=== PATIENT | female | born 1960 | race Caucasian/White ===

== ENCOUNTER 2021-05-21 09:12 | Inpatient (IN) | payer OTHER, SELFPAY ==
[~2021-05-21] VITALS: Ht 160 cm; Wt 76.7 kg
[2021-05-21 09:15] VITALS: BP_SYST 131
[2021-05-21] MEDS ORDERED: NACL 0.9% 1,000 ML IV ONE ×3 (09:45→12:00)
[2021-05-21] MEDS ORDERED: ONDANSETRON HCL 4 MG/2 ML VIAL IVP ONE (09:45)
[2021-05-21 09:53] LABS: BASOPHILS # (AUTO) 0.1 K/uL (0.0-0.2); BASOPHILS % (AUTO) 0.2 % (0.0-2.0); HEMATOCRIT 37.5 % (36-48); HEMOGLOBIN 12.5 g/dL (12.0-16.0); LYMPHOCYTES # (AUTO) 0.6 K/uL (1.0-5.5); LYMPHOCYTES % (AUTO) 1.6 % (20.5-51.5); MEAN CORPUSCULAR HEMOGLOBIN 30 pg (27-31); MEAN CORPUSCULAR HGB CONC 33 % (32-36); MEAN CORPUSCULAR VOLUME 89 fL (79.0-98.0); MONOCYTES # (AUTO) 1.5 K/uL (0.0-1.0); MONOCYTES % (AUTO) 3.8 % (1.7-9.3); NEUTROPHILS # (AUTO) 36.9 K/uL (1.8-7.7); PLATELET COUNT (AUTO) 283 K/uL (130-430); RED BLOOD CELL COUNT(AUTO) 4.21 MIL/uL (4.2-6.2); RED CELL DISTRIBUTION WIDTH 15.4 % (9.0-15.0)
[2021-05-21 10:22] LABS: ANION GAP 13 (5-15); CHLORIDE 97 mmol/L (98-107); CREATININE 3.06 mg/dL (0.55-1.30); GLUCOSE 72 mg/dL (70-99); SODIUM SERUM 131 mmol/L (136-145); UREA NITROGEN, BLOOD 65 mg/dL (8-21)
[2021-05-21 10:29] LABS: ALANINE AMINOTRANSFERASE 16 U/L (12-78); ALBUMIN 2.8 g/dL (3.4-4.8); ASPARTATE AMINOTRANSFERASE 65 U/L (10-37); LIPASE 225 U/L (73-393); TOTAL BILIRUBIN 0.5 mg/dL (0.0-1.0)
[2021-05-21 10:31] LABS: GFR AFRICAN AMERICAN 20 mL/min (>90); POTASSIUM 5.8 mmol/L (3.5-5.1)
[2021-05-21 10:33] LABS: CALCIUM 17.5 mg/dL (8.4-11.0)
[2021-05-21 10:34] LABS: WHITE BLOOD COUNT (AUTO) 39.1 K/uL (4.8-10.8)
[2021-05-21] MEDS ORDERED: ZINC220T4 PO (11:23)
[2021-05-21] MEDS ORDERED: ACET-73 PO (11:23)
[2021-05-21] MEDS ORDERED: ASCO500T20 PO (11:23)
[2021-05-21] MEDS ORDERED: VITD2000 PO (11:23)
[2021-05-21] MEDS ORDERED: OSCD500 PO (11:23)
[2021-05-21] MEDS ORDERED: RIVA20TA PO (11:23)
[2021-05-21] MEDS ORDERED: CRAN450T9 PO (11:23)
[2021-05-21] MEDS ORDERED: PERC10 PO (11:23)
[2021-05-21] MEDS ORDERED: NA P133E41 RC (11:23)
[2021-05-21] MEDS ORDERED: NITR-85 PO (11:23)
[2021-05-21] MEDS ORDERED: NOR10 PO (11:23)
[2021-05-21] MEDS ORDERED: BENA40TA8 PO (11:23)
[2021-05-21] MEDS ORDERED: METF-518 PO (11:23)
[2021-05-21] MEDS ORDERED: ESCI10TA PO (11:23)
[2021-05-21] MEDS ORDERED: CYCL10TA24 PO (11:23)
[2021-05-21] MEDS ORDERED: DOCU-144 PO (11:23)
[2021-05-21 11:29] LABS: BILIRUBIN,URINE NEGATIVE (NEGATIVE); BLOOD, URINE NEGATIVE (NEGATIVE); GLUCOSE,URINE NEGATIVE (NEGATIVE); KETONES,URINE NEGATIVE (NEGATIVE); LEUKOCYTE ESTERASE ,URINE NEGATIVE (NEGATIVE); NITRITE, URINE NEGATIVE (NEGATIVE); PH,URINE 5.5 (5.0-8.0); PROTEIN URINE NEGATIVE (NEGATIVE); UROBILINOGEN,URINE 0.2 (0.2-1.0)
[2021-05-21] MEDS ORDERED: DEXTROSE 50% JECT 50 ML DISP.SYRIN IVP ONE (12:00)
[2021-05-21] MEDS ORDERED: PIPERACILLIN/TAZO 3.375 GM in NS 50 ML IV ONE (12:00)
[2021-05-21] MEDS ORDERED: SODIUM POLYSTYRENE SULFONATE 15 GM/60 ML UDBTL PO ONE (12:00)
[2021-05-21] MEDS ORDERED: PIPERACILLIN/TAZOBACTAM 3.375 GM/VIAL (ZOSYN) IV ONE (12:02)
[2021-05-21] MEDS ORDERED: LINEZOLID 300 ML IV SCH (12:15)
[2021-05-21 12:16] LABS: CLARITY/URINE SLIGHTLY HAZY (CLEAR); COLOR,URINE YELLOW (YELLOW)
[2021-05-21 13:37] LABS: NEUTROPHILS % (AUTO) 94.4 % (40.0-70.0)
[2021-05-21 13:43] LABS: THYROID STIMULATING HORMONE 1.54 uIu/mL (0.36-3.74)
[2021-05-21] MEDS ORDERED: PIPERACILLIN/TAZO 3.375/DEX-IS 50 ML IV SCH (14:00)
[2021-05-21 18:35] VITALS: BP_SYST 162
[2021-05-21] MEDS: 0.45% NACL 1,000 ML IV SCH ×2 (18:52→19:10)
[2021-05-21] MEDS: PIPERACILLIN/TAZO 2.25G/DEX-IS 50 ML IV SCH (19:18)
[2021-05-21] MEDS ORDERED: CALCIUM CARBONATE/VITAMIN D3 1 TAB TABLET PO SCH (19:30)
[2021-05-21] MEDS ORDERED: SODIUM PHOSPHATE,MONO-DIBASIC 133 ML ENEMA RC PRN (19:30)
[2021-05-21 21:00] VITALS: BP_SYST 147
[2021-05-21] MEDS: CYCLOBENZAPRINE HCL 10 MG TABLET (FLEXERIL) PO SCH (23:20)
[2021-05-21] MEDS: DOCUSATE SODIUM 100 MG CAPSULE PO SCH (23:20)
[2021-05-22 00:30] VITALS: BP_SYST 159
[2021-05-22] MEDS: PIPERACILLIN/TAZO 2.25G/DEX-IS 50 ML IV SCH ×2 (00:31→06:20)
[2021-05-22] MEDS: 0.45% NACL 1,000 ML IV SCH ×4 (00:32→21:26)
[2021-05-22 07:28] LABS: BASOPHILS % (AUTO) 0.1 % (0.0-2.0); HEMOGLOBIN 9.7 g/dL (12.0-16.0); LYMPHOCYTES # (AUTO) 0.5 K/uL (1.0-5.5); LYMPHOCYTES % (AUTO) 1.3 % (20.5-51.5); MEAN CORPUSCULAR HEMOGLOBIN 29 pg (27-31); MEAN CORPUSCULAR HGB CONC 32 % (32-36); MEAN CORPUSCULAR VOLUME 89 fL (79.0-98.0); MONOCYTES # (AUTO) 1.5 K/uL (0.0-1.0); MONOCYTES % (AUTO) 3.5 % (1.7-9.3); NEUTROPHILS # (AUTO) 40.2 K/uL (1.8-7.7); NEUTROPHILS % (AUTO) 95.1 % (40.0-70.0); PLATELET COUNT (AUTO) 223 K/uL (130-430); RED BLOOD CELL COUNT(AUTO) 3.37 MIL/uL (4.2-6.2)
[2021-05-22 08:03] VITALS: BP_SYST 134
[2021-05-22 08:07] LABS: CREATININE 1.82 mg/dL (0.55-1.30)
[2021-05-22 08:25] LABS: WHITE BLOOD COUNT (AUTO) 42.3 K/uL (4.8-10.8)
[2021-05-22] MEDS ORDERED: lisinopriL 20 MG TABLET PO SCH (09:00)
[2021-05-22] MEDS ORDERED: CHOLECALCIFEROL (VITAMIN D3) 2,000 UNIT TABLET PO SCH (09:00)
[2021-05-22] MEDS ORDERED: BENAZEPRIL HCL 20 MG TABLET (LOTENSIN) PO SCH (09:00)
[2021-05-22] MEDS ORDERED: ESCITALOPRAM OXALATE 10 MG TABLET PO SCH (09:00)
[2021-05-22] MEDS ORDERED: amLODIPine BESYLATE 10 MG TABLET PO SCH (09:00)
[2021-05-22 09:25] LABS: CALCIUM 14.8 mg/dL (8.4-11.0)
[2021-05-22] MEDS ORDERED: DEXAMETHASONE SOD PHOSPHATE 4 MG/ML VIAL IVP ONE (09:45)
[2021-05-22] MEDS: DOCUSATE SODIUM 100 MG CAPSULE PO SCH ×2 (10:39→21:21)
[2021-05-22] MEDS: CITALOPRAM HYDROBROMIDE 20 MG TABLET PO SCH (10:39)
[2021-05-22] MEDS: CYCLOBENZAPRINE HCL 10 MG TABLET (FLEXERIL) PO SCH ×3 (10:40→21:20)
[2021-05-22] MEDS: ASCORBIC ACID 500 MG TABLET PO SCH (10:43)
[2021-05-22 10:49] VITALS: BP_SYST 153
[2021-05-22] MEDS ORDERED: COMMUNICATION ORDER XX ONE (11:15)
[2021-05-22] MEDS ORDERED: METOPROLOL TARTRATE 25 MG TABLET PO ONE (11:15)
[2021-05-22] MEDS: CALCITONIN SALMON,SYNTHETIC 200 UNITS/ML VIAL SUBCUT SCH ×2 (11:41→21:20)
[2021-05-22] MEDS: LORazepam 2 MG/ML VIAL IVP PRN (11:43)
[2021-05-22] MEDS: OXYCODONE/ACETAMINOPHEN *10*mg/325 mg TABLET PO PRN (11:49)
[2021-05-22] MEDS: MEROPENEM 1 GM in NS 100 ML IV SCH (16:02)
[2021-05-22 16:21] VITALS: BP_SYST 139
[2021-05-22] MEDS ORDERED: ZOLEDRONIC ACID 4 MG in NS 100 ML IV ONE (18:00)
[2021-05-22 21:18] VITALS: BP_SYST 125
[2021-05-22] MEDS: DEXAMETHASONE SOD PHOSPHATE 4 MG/ML VIAL IVP SCH (21:21)
[2021-05-22] MEDS: METOPROLOL TARTRATE 25 MG TABLET PO SCH (21:21)
[2021-05-23] VITALS: BP_SYST 142
[2021-05-23] MEDS: LORazepam 2 MG/ML VIAL IVP PRN ×2 (00:51→21:45)
[2021-05-23] MEDS: MEROPENEM 1 GM in NS 100 ML IV SCH ×2 (02:40→14:13)
[2021-05-23] MEDS: 0.45% NACL 1,000 ML IV SCH ×3 (04:34→21:07)
[2021-05-23 07:47] LABS: ALBUMIN 2.3 g/dL (3.4-4.8); CALCIUM 11.6 mg/dL (8.4-11.0); CREATININE 1.23 mg/dL (0.55-1.30); PHOSPHORUS 1.7 mg/dL (2.7-4.5); POTASSIUM 3.6 mmol/L (3.5-5.1); TOTAL BILIRUBIN 0.4 mg/dL (0.0-1.0)
[2021-05-23 08:23] LABS: HEMATOCRIT 26.3 % (36-48); HEMOGLOBIN 8.5 g/dL (12.0-16.0); MEAN CORPUSCULAR HEMOGLOBIN 29 pg (27-31); MEAN CORPUSCULAR HGB CONC 32 % (32-36); MEAN CORPUSCULAR VOLUME 89 fL (79.0-98.0); PLATELET COUNT (AUTO) 174 K/uL (130-430); RED BLOOD CELL COUNT(AUTO) 2.94 MIL/uL (4.2-6.2)
[2021-05-23 08:24] VITALS: BP_SYST 132
[2021-05-23] MEDS: CALCITONIN SALMON,SYNTHETIC 200 UNITS/ML VIAL SUBCUT SCH ×2 (09:00→21:20)
[2021-05-23 09:41] LABS: INR 1.3 (0.8-1.2); PROTHROMBIN TIME 13.7 SECS (9.5-12.5)
[2021-05-23 09:58] LABS: WHITE BLOOD COUNT (AUTO) 36.6 K/uL (4.8-10.8)
[2021-05-23] MEDS: CITALOPRAM HYDROBROMIDE 20 MG TABLET PO SCH (10:15)
[2021-05-23] MEDS: ASCORBIC ACID 500 MG TABLET PO SCH (10:15)
[2021-05-23] MEDS: amLODIPine BESYLATE 5 MG TABLET PO SCH ×2 (10:16→10:31)
[2021-05-23] MEDS: DEXAMETHASONE SOD PHOSPHATE 4 MG/ML VIAL IVP SCH ×2 (10:27→21:13)
[2021-05-23] MEDS: DOCUSATE SODIUM 100 MG CAPSULE PO SCH ×2 (10:29→21:13)
[2021-05-23] MEDS: METOPROLOL TARTRATE 25 MG TABLET PO SCH ×2 (10:42→10:46)
[2021-05-23] MEDS: CYCLOBENZAPRINE HCL 10 MG TABLET (FLEXERIL) PO SCH ×3 (10:45→21:13)
[2021-05-23 12:49] VITALS: BP_SYST 136
[2021-05-23] MEDS ORDERED: K PHOS 30 MM in NS 250 ML IV ONE (13:30)
[2021-05-23 13:38] LABS: BAND % (MANUAL) 3 % (0-6); BASOPHILS % (MANUAL) 0 % (0-2); EOSINOPHILS % (MANUAL) 0 % (0-7); LYMPHOCYTES % (MANUAL) 2 % (20-46); METAMYELOCYTES % 1 % (0-0); MONOCYTES % (MANUAL) 4 % (0-11)
[2021-05-23 16:14] VITALS: BP_SYST 134
[2021-05-23 21:14] VITALS: BP_SYST 139
[2021-05-23] MEDS: OXYCODONE/ACETAMINOPHEN *10*mg/325 mg TABLET PO PRN ×3 (21:14→21:36)
[2021-05-24] VITALS (7 sets, daily range): BP systolic 132–156
[2021-05-24] MEDS: LORazepam 2 MG/ML VIAL IVP PRN ×2 (02:15→09:07)
[2021-05-24] MEDS: MEROPENEM 1 GM in NS 100 ML IV SCH ×3 (02:18→22:06)
[2021-05-24] MEDS: 0.45% NACL 1,000 ML IV SCH (05:42)
[2021-05-24 06:56] LABS: BASOPHILS % (AUTO) 0.1 % (0.0-2.0); HEMOGLOBIN 8.1 g/dL (12.0-16.0); LYMPHOCYTES # (AUTO) 0.7 K/uL (1.0-5.5); MEAN CORPUSCULAR HEMOGLOBIN 29 pg (27-31); MEAN CORPUSCULAR HGB CONC 32 % (32-36); MEAN CORPUSCULAR VOLUME 89 fL (79.0-98.0); MONOCYTES # (AUTO) 1.5 K/uL (0.0-1.0); MONOCYTES % (AUTO) 4.2 % (1.7-9.3); NEUTROPHILS % (AUTO) 93.7 % (40.0-70.0); PLATELET COUNT (AUTO) 167 K/uL (130-430); RED BLOOD CELL COUNT(AUTO) 2.81 MIL/uL (4.2-6.2); RED CELL DISTRIBUTION WIDTH 14.7 % (9.0-15.0)
[2021-05-24 08:20] LABS: CALCIUM 9.9 mg/dL (8.4-11.0); CREATININE 0.66 mg/dL (0.55-1.30); PHOSPHORUS 1.9 mg/dL (2.7-4.5); POTASSIUM 3.7 mmol/L (3.5-5.1)
[2021-05-24 09:05] LABS: WHITE BLOOD COUNT (AUTO) 36.3 K/uL (4.8-10.8)
[2021-05-24] MEDS: CITALOPRAM HYDROBROMIDE 20 MG TABLET PO SCH (09:12)
[2021-05-24] MEDS: CYCLOBENZAPRINE HCL 10 MG TABLET (FLEXERIL) PO SCH ×3 (09:12→22:00)
[2021-05-24] MEDS: DOCUSATE SODIUM 100 MG CAPSULE PO SCH ×2 (09:14→22:04)
[2021-05-24] MEDS: amLODIPine BESYLATE 5 MG TABLET PO SCH (09:14)
[2021-05-24] MEDS: ASCORBIC ACID 500 MG TABLET PO SCH (09:14)
[2021-05-24] MEDS: DEXAMETHASONE SOD PHOSPHATE 4 MG/ML VIAL IVP SCH (09:21)
[2021-05-24] MEDS: METOPROLOL TARTRATE 25 MG TABLET PO SCH ×2 (09:22→22:02)
[2021-05-24] MEDS ORDERED: K PHOS 30 MM in NS 250 ML IV ONE (12:45)
[2021-05-24] MEDS: CALCITONIN SALMON,SYNTHETIC 200 UNITS/ML VIAL SUBCUT SCH (21:00)
[2021-05-25 00:39] VITALS: BP_SYST 147
[2021-05-25] MEDS: INSULIN REGULAR, HUMAN 100 UNITS/ML, 10 ML VIAL (humuLIN R) SUBCUT PRN (01:05)
[2021-05-25] MEDS: 0.45% NACL 1,000 ML IV SCH ×4 (01:37→23:07)
[2021-05-25 04:00] VITALS: BP_SYST 146
[2021-05-25] MEDS: MEROPENEM 1 GM in NS 100 ML IV SCH ×3 (06:57→23:07)
[2021-05-25 07:26] LABS: HEMATOCRIT 25.5 % (36-48); HEMOGLOBIN 8.1 g/dL (12.0-16.0); MEAN CORPUSCULAR HEMOGLOBIN 29 pg (27-31); MEAN CORPUSCULAR HGB CONC 32 % (32-36); MEAN CORPUSCULAR VOLUME 89 fL (79.0-98.0); PLATELET COUNT (AUTO) 164 K/uL (130-430); RED BLOOD CELL COUNT(AUTO) 2.86 MIL/uL (4.2-6.2); RED CELL DISTRIBUTION WIDTH 15.1 % (9.0-15.0)
[2021-05-25 07:52] LABS: WHITE BLOOD COUNT (AUTO) 36.4 K/uL (4.8-10.8)
[2021-05-25 08:23] LABS: ATYPICAL LYMPHOCYTES % 0 % (0-0); BAND % (MANUAL) 9 % (0-6); BASOPHILS % (MANUAL) 0 % (0-2); EOSINOPHILS % (MANUAL) 0 % (0-7); LYMPHOCYTES % (MANUAL) 5 % (20-46); MONOCYTES % (MANUAL) 3 % (0-11)
[2021-05-25] MEDS: DOCUSATE SODIUM 100 MG CAPSULE PO SCH ×3 (09:00→20:59)
[2021-05-25 09:07] VITALS: BP_SYST 144
[2021-05-25] MEDS: CITALOPRAM HYDROBROMIDE 20 MG TABLET PO SCH (09:13)
[2021-05-25] MEDS: CYCLOBENZAPRINE HCL 10 MG TABLET (FLEXERIL) PO SCH ×3 (09:14→20:58)
[2021-05-25] MEDS: METOPROLOL TARTRATE 25 MG TABLET PO SCH ×2 (09:15→20:58)
[2021-05-25] MEDS: ASCORBIC ACID 500 MG TABLET PO SCH (09:15)
[2021-05-25] MEDS ORDERED: amLODIPine BESYLATE 5 MG TABLET PO ONE (09:30)
[2021-05-25 10:02] LABS: CALCIUM 8.9 mg/dL (8.4-11.0); CREATININE 0.58 mg/dL (0.55-1.30); PHOSPHORUS 1.4 mg/dL (2.7-4.5); POTASSIUM 3.3 mmol/L (3.5-5.1)
[2021-05-25] MEDS: CALCITONIN SALMON,SYNTHETIC 200 UNITS/ML VIAL SUBCUT SCH (11:07)
[2021-05-25 13:03] VITALS: BP_SYST 149
[2021-05-25] MEDS ORDERED: K PHOS 30 MM in NS 250 ML IV ONE ×2 (14:15→15:00)
[2021-05-25 18:10] VITALS: BP_SYST 143
[2021-05-25 20:05] VITALS: BP_SYST 147
[2021-05-26 01:18] VITALS: BP_SYST 145
[2021-05-26] MEDS: MEROPENEM 1 GM in NS 100 ML IV SCH ×3 (06:01→21:08)
[2021-05-26 08:25] VITALS: BP_SYST 150
[2021-05-26] MEDS: CYCLOBENZAPRINE HCL 10 MG TABLET (FLEXERIL) PO SCH ×3 (08:27→21:08)
[2021-05-26] MEDS: CITALOPRAM HYDROBROMIDE 20 MG TABLET PO SCH (08:27)
[2021-05-26] MEDS: METOPROLOL TARTRATE 25 MG TABLET PO SCH ×2 (08:28→21:07)
[2021-05-26] MEDS: amLODIPine BESYLATE 5 MG TABLET PO SCH (08:29)
[2021-05-26] MEDS: ASCORBIC ACID 500 MG TABLET PO SCH (08:29)
[2021-05-26] MEDS: DOCUSATE SODIUM 100 MG CAPSULE PO SCH ×2 (08:39→21:00)
[2021-05-26] MEDS: 0.45% NACL 1,000 ML IV SCH (09:30)
[2021-05-26 12:00] VITALS: BP_SYST 140
[2021-05-26 16:09] VITALS: BP_SYST 137
[2021-05-26] MEDS: OXYCODONE/ACETAMINOPHEN *10*mg/325 mg TABLET PO PRN (21:26)
[2021-05-26] MEDS: LORazepam 2 MG/ML VIAL IVP PRN (21:26)
[2021-05-26 23:54] VITALS: BP_SYST 135
[2021-05-27 00:28] VITALS: BP_SYST 124
[2021-05-27] MEDS: LORazepam 2 MG/ML VIAL IVP PRN ×2 (01:35→20:24)
[2021-05-27] MEDS: OXYCODONE/ACETAMINOPHEN *10*mg/325 mg TABLET PO PRN (04:18)
[2021-05-27 04:45] VITALS: BP_SYST 132
[2021-05-27] MEDS: MEROPENEM 1 GM in NS 100 ML IV SCH ×3 (06:00→21:09)
[2021-05-27] MEDS: INSULIN REGULAR, HUMAN 100 UNITS/ML, 10 ML VIAL (humuLIN R) SUBCUT PRN ×2 (06:40→07:25)
[2021-05-27 08:00] VITALS: BP_SYST 143
[2021-05-27 08:10] LABS: ALBUMIN 2.7 g/dL (3.4-4.8); CALCIUM 7.2 mg/dL (8.4-11.0); CREATININE 0.51 mg/dL (0.55-1.30); TOTAL BILIRUBIN 0.5 mg/dL (0.0-1.0)
[2021-05-27 09:03] LABS: BASOPHILS # (AUTO) 0.1 K/uL (0.0-0.2); BASOPHILS % (AUTO) 0.2 % (0.0-2.0); EOSINOPHILS % (AUTO) 0.1 % (0.0-4.0); HEMATOCRIT 26.6 % (36-48); HEMOGLOBIN 8.4 g/dL (12.0-16.0); LYMPHOCYTES # (AUTO) 0.9 K/uL (1.0-5.5); LYMPHOCYTES % (AUTO) 2.5 % (20.5-51.5); MEAN CORPUSCULAR HEMOGLOBIN 28 pg (27-31); MEAN CORPUSCULAR HGB CONC 32 % (32-36); MEAN CORPUSCULAR VOLUME 89 fL (79.0-98.0); MONOCYTES # (AUTO) 1.9 K/uL (0.0-1.0); NEUTROPHILS # (AUTO) 34.5 K/uL (1.8-7.7); PLATELET COUNT (AUTO) 153 K/uL (130-430); RED BLOOD CELL COUNT(AUTO) 2.99 MIL/uL (4.2-6.2); RED CELL DISTRIBUTION WIDTH 15.3 % (9.0-15.0)
[2021-05-27] MEDS: ASCORBIC ACID 500 MG TABLET PO SCH (09:03)
[2021-05-27] MEDS: DOCUSATE SODIUM 100 MG CAPSULE PO SCH ×2 (09:03→20:20)
[2021-05-27] MEDS: METOPROLOL TARTRATE 25 MG TABLET PO SCH ×2 (09:04→20:20)
[2021-05-27] MEDS: CITALOPRAM HYDROBROMIDE 20 MG TABLET PO SCH (09:05)
[2021-05-27] MEDS: CYCLOBENZAPRINE HCL 10 MG TABLET (FLEXERIL) PO SCH ×3 (09:05→20:19)
[2021-05-27] MEDS: amLODIPine BESYLATE 5 MG TABLET PO SCH (09:05)
[2021-05-27 09:29] LABS: NEUTROPHILS % (AUTO) 92.2 % (40.0-70.0)
[2021-05-27 11:34] LABS: POTASSIUM 2.8 mmol/L (3.5-5.1)
[2021-05-27 12:25] VITALS: BP_SYST 148
[2021-05-27] MEDS ORDERED: POTASSIUM CHLORIDE 20 MEQ TAB.PRT.SR PO ONE (12:45)
[2021-05-27] MEDS: 0.45% NACL 1,000 ML IV SCH (13:30)
[2021-05-27] MEDS ORDERED: POTASSIUM CHLORIDE 40 MEQ, LIDOCAINE JECT 2% PF 100 MG 50 MG in NS 250 ML IV ONE (14:15)
[2021-05-27 14:55] LABS: TOTAL IRON BIND. CAPACITY 144 ug/dL (250-450)
[2021-05-27 16:54] VITALS: BP_SYST 136
[2021-05-27 20:00] VITALS: BP_SYST 150
[2021-05-27] MEDS: RIVAROXABAN 10 MG TABLET PO SCH (20:19)
[2021-05-27 23:23] LABS: BILIRUBIN,URINE NEGATIVE (NEGATIVE); BLOOD, URINE 2+ (NEGATIVE); COLOR,URINE YELLOW (YELLOW); GLUCOSE,URINE NEGATIVE (NEGATIVE); KETONES,URINE 2+ (NEGATIVE); LEUKOCYTE ESTERASE ,URINE NEGATIVE (NEGATIVE); NITRITE, URINE NEGATIVE (NEGATIVE); PROTEIN URINE TRACE (NEGATIVE); UROBILINOGEN,URINE 0.2 (0.2-1.0)
[2021-05-27 23:32] LABS: CLARITY/URINE SLIGHTLY CLOUDY (CLEAR)
[2021-05-27 23:38] LABS: WBC,URINE 0-3 /HPF (0-3)
[2021-05-27 23:39] LABS: BACTERIA,URINE FEW /HPF (None Seen)
[2021-05-28] VITALS: BP_SYST 144
[2021-05-28] MEDS: 0.45% NACL 1,000 ML IV SCH ×4 (00:01→20:01)
[2021-05-28] MEDS: MEROPENEM 1 GM in NS 100 ML IV SCH ×3 (05:00→21:38)
[2021-05-28] MEDS: ACETAMINOPHEN 500 MG TABLET PO PRN (05:10)
[2021-05-28 07:59] LABS: ALBUMIN 2.7 g/dL (3.4-4.8); CALCIUM 7.3 mg/dL (8.4-11.0); CREATININE 0.46 mg/dL (0.55-1.30); PHOSPHORUS 1.1 mg/dL (2.7-4.5); POTASSIUM 3.7 mmol/L (3.5-5.1); TOTAL BILIRUBIN 0.6 mg/dL (0.0-1.0)
[2021-05-28 08:00] VITALS: BP_SYST 145
[2021-05-28 08:09] LABS: BASOPHILS # (AUTO) 0.1 K/uL (0.0-0.2); BASOPHILS % (AUTO) 0.2 % (0.0-2.0); HEMOGLOBIN 8.7 g/dL (12.0-16.0); LYMPHOCYTES # (AUTO) 0.8 K/uL (1.0-5.5); LYMPHOCYTES % (AUTO) 2.1 % (20.5-51.5); MEAN CORPUSCULAR HEMOGLOBIN 29 pg (27-31); MEAN CORPUSCULAR HGB CONC 32 % (32-36); MEAN CORPUSCULAR VOLUME 89 fL (79.0-98.0); MONOCYTES # (AUTO) 1.8 K/uL (0.0-1.0); MONOCYTES % (AUTO) 4.8 % (1.7-9.3); NEUTROPHILS # (AUTO) 34.4 K/uL (1.8-7.7); PLATELET COUNT (AUTO) 147 K/uL (130-430); RED BLOOD CELL COUNT(AUTO) 3.03 MIL/uL (4.2-6.2); RED CELL DISTRIBUTION WIDTH 15.6 % (9.0-15.0)
[2021-05-28] MEDS: DOCUSATE SODIUM 100 MG CAPSULE PO SCH ×3 (09:00→21:36)
[2021-05-28] MEDS: METOPROLOL TARTRATE 25 MG TABLET PO SCH (09:10)
[2021-05-28] MEDS: CITALOPRAM HYDROBROMIDE 20 MG TABLET PO SCH (09:10)
[2021-05-28] MEDS: ASCORBIC ACID 500 MG TABLET PO SCH (09:11)
[2021-05-28] MEDS: amLODIPine BESYLATE 5 MG TABLET PO SCH (09:12)
[2021-05-28] MEDS: CYCLOBENZAPRINE HCL 10 MG TABLET (FLEXERIL) PO SCH ×3 (09:12→21:37)
[2021-05-28 10:07] LABS: FOLATE (FOLIC ACID) 4.4 ng/mL (>3.0)
[2021-05-28 10:09] LABS: NEUTROPHILS % (AUTO) 92.9 % (40.0-70.0); WHITE BLOOD COUNT (AUTO) 37.1 K/uL (4.8-10.8)
[2021-05-28 10:11] LABS: WHITE BLOOD COUNT (AUTO) 37.4 K/uL (4.8-10.8)
[2021-05-28 12:20] VITALS: BP_SYST 152
[2021-05-28] MEDS ORDERED: SODIUM BICARBONATE 650 MG TABLET PO ONE (13:15)
[2021-05-28] MEDS ORDERED: K PHOS 30 MM in NS 250 ML IV ONE (14:00)
[2021-05-28 16:34] VITALS: BP_SYST 143
[2021-05-28] MEDS ORDERED: K PHOS 15 MM in NS 250 ML IV ONE (18:15)
[2021-05-28 20:00] VITALS: BP_SYST 150
[2021-05-28] MEDS: SODIUM BICARBONATE 650 MG TABLET PO SCH (21:36)
[2021-05-28] MEDS: METOPROLOL TARTRATE 50 MG TABLET PO SCH (21:37)
[2021-05-28] MEDS: RIVAROXABAN 10 MG TABLET PO SCH (21:37)
[2021-05-28] MEDS: LORazepam 2 MG/ML VIAL IVP PRN (21:59)
[2021-05-29] VITALS: BP_SYST 140
[2021-05-29] MEDS: 0.45% NACL 1,000 ML IV SCH ×3 (01:06→15:30)
[2021-05-29] MEDS: MEROPENEM 1 GM in NS 100 ML IV SCH ×2 (05:50→20:46)
[2021-05-29 07:05] LABS: BASOPHILS # (AUTO) 0.1 K/uL (0.0-0.2); BASOPHILS % (AUTO) 0.2 % (0.0-2.0); EOSINOPHILS % (AUTO) 0.1 % (0.0-4.0); HEMATOCRIT 27.8 % (36-48); LYMPHOCYTES # (AUTO) 0.8 K/uL (1.0-5.5); LYMPHOCYTES % (AUTO) 2.2 % (20.5-51.5); MEAN CORPUSCULAR HEMOGLOBIN 29 pg (27-31); MEAN CORPUSCULAR HGB CONC 32 % (32-36); MEAN CORPUSCULAR VOLUME 89 fL (79.0-98.0); MONOCYTES # (AUTO) 1.8 K/uL (0.0-1.0); MONOCYTES % (AUTO) 4.9 % (1.7-9.3); NEUTROPHILS % (AUTO) 92.6 % (40.0-70.0); PLATELET COUNT (AUTO) 135 K/uL (130-430); RED BLOOD CELL COUNT(AUTO) 3.12 MIL/uL (4.2-6.2); RED CELL DISTRIBUTION WIDTH 15.9 % (9.0-15.0)
[2021-05-29 08:00] VITALS: BP_SYST 137
[2021-05-29 08:28] LABS: WHITE BLOOD COUNT (AUTO) 36.7 K/uL (4.8-10.8)
[2021-05-29 08:34] LABS: CREATININE 0.44 mg/dL (0.55-1.30); PHOSPHORUS 1.7 mg/dL (2.7-4.5); POTASSIUM 3.2 mmol/L (3.5-5.1)
[2021-05-29] MEDS: DOCUSATE SODIUM 100 MG CAPSULE PO SCH ×2 (09:00→20:26)
[2021-05-29] MEDS: SODIUM BICARBONATE 650 MG TABLET PO SCH ×2 (09:30→20:26)
[2021-05-29] MEDS: ASCORBIC ACID 500 MG TABLET PO SCH (09:31)
[2021-05-29] MEDS: CYCLOBENZAPRINE HCL 10 MG TABLET (FLEXERIL) PO SCH ×3 (09:31→20:27)
[2021-05-29] MEDS: METOPROLOL TARTRATE 50 MG TABLET PO SCH ×2 (09:32→20:30)
[2021-05-29] MEDS: amLODIPine BESYLATE 5 MG TABLET PO SCH (09:33)
[2021-05-29] MEDS: CITALOPRAM HYDROBROMIDE 20 MG TABLET PO SCH (09:33)
[2021-05-29 09:50] LABS: CALCIUM 6.5 mg/dL (8.4-11.0)
[2021-05-29 12:18] VITALS: BP_SYST 145
[2021-05-29] MEDS ORDERED: K PHOS 30 MM in NS 250 ML IV ONE ×2 (16:00→16:15)
[2021-05-29 16:14] VITALS: BP_SYST 139
[2021-05-29] MEDS ORDERED: CALCIUM GLUCONATE 2 GM in NS 100 ML IV ONE (16:15)
[2021-05-29] MEDS ORDERED: K PHOS 15 MM in NS 250 ML IV ONE (18:00)
[2021-05-29 20:00] VITALS: BP_SYST 148
[2021-05-29] MEDS: RIVAROXABAN 10 MG TABLET PO SCH (20:28)
[2021-05-30 01:19] VITALS: BP_SYST 171
[2021-05-30] MEDS: 0.45% NACL 1,000 ML IV SCH ×4 (02:01→22:01)
[2021-05-30] MEDS: MEROPENEM 1 GM in NS 100 ML IV SCH ×3 (05:19→22:05)
[2021-05-30 07:58] LABS: BASOPHILS # (AUTO) 0.1 K/uL (0.0-0.2); BASOPHILS % (AUTO) 0.4 % (0.0-2.0); HEMATOCRIT 26.6 % (36-48); HEMOGLOBIN 8.5 g/dL (12.0-16.0); LYMPHOCYTES # (AUTO) 0.8 K/uL (1.0-5.5); LYMPHOCYTES % (AUTO) 2.1 % (20.5-51.5); MEAN CORPUSCULAR HEMOGLOBIN 29 pg (27-31); MEAN CORPUSCULAR HGB CONC 32 % (32-36); MEAN CORPUSCULAR VOLUME 90 fL (79.0-98.0); MONOCYTES # (AUTO) 1.7 K/uL (0.0-1.0); MONOCYTES % (AUTO) 4.7 % (1.7-9.3); NEUTROPHILS # (AUTO) 33.9 K/uL (1.8-7.7); PLATELET COUNT (AUTO) 147 K/uL (130-430); RED BLOOD CELL COUNT(AUTO) 2.95 MIL/uL (4.2-6.2); RED CELL DISTRIBUTION WIDTH 16.1 % (9.0-15.0)
[2021-05-30 08:00] VITALS: BP_SYST 100
[2021-05-30 08:13] LABS: ALBUMIN 2.6 g/dL (3.4-4.8); CREATININE 0.46 mg/dL (0.55-1.30); PHOSPHORUS 2.1 mg/dL (2.7-4.5); POTASSIUM 3.3 mmol/L (3.5-5.1)
[2021-05-30 08:43] LABS: CALCIUM 6.4 mg/dL (8.4-11.0)
[2021-05-30] MEDS: DOCUSATE SODIUM 100 MG CAPSULE PO SCH ×2 (09:00→22:02)
[2021-05-30] MEDS: SODIUM BICARBONATE 650 MG TABLET PO SCH ×2 (09:33→22:03)
[2021-05-30] MEDS: CITALOPRAM HYDROBROMIDE 20 MG TABLET PO SCH (09:33)
[2021-05-30] MEDS: ASCORBIC ACID 500 MG TABLET PO SCH (09:35)
[2021-05-30] MEDS: CYCLOBENZAPRINE HCL 10 MG TABLET (FLEXERIL) PO SCH ×3 (09:35→22:03)
[2021-05-30 10:16] LABS: WHITE BLOOD COUNT (AUTO) 36.5 K/uL (4.8-10.8)
[2021-05-30 10:17] LABS: NEUTROPHILS % (AUTO) 92.8 % (40.0-70.0)
[2021-05-30] MEDS: METOPROLOL TARTRATE 50 MG TABLET PO SCH ×2 (11:48→22:03)
[2021-05-30] MEDS: amLODIPine BESYLATE 5 MG TABLET PO SCH (11:50)
[2021-05-30] MEDS ORDERED: METOPROLOL TARTRATE 50 MG TABLET ONE (11:51)
[2021-05-30] MEDS ORDERED: amLODIPine BESYLATE 5 MG TABLET ONE (11:52)
[2021-05-30 12:05] VITALS: BP_SYST 133
[2021-05-30 15:11] LABS: VIT D,1, 25-DIHYDROXY 16.3 pg/mL (19.9-79.3)
[2021-05-30 15:14] LABS: PTH, INTACT 14 pg/mL (15-65)
[2021-05-30 20:00] VITALS: BP_SYST 121
[2021-05-30] MEDS: RIVAROXABAN 10 MG TABLET PO SCH (22:04)
[2021-05-30] MEDS: CALCIUM CARBONATE/VITAMIN D3 1 TAB TABLET PO SCH (22:05)
[2021-05-31 01:45] VITALS: BP_SYST 120
[2021-05-31] MEDS: 0.45% NACL 1,000 ML IV SCH ×2 (05:07→14:35)
[2021-05-31] MEDS: MEROPENEM 1 GM in NS 100 ML IV SCH ×3 (05:07→21:47)
[2021-05-31 08:00] VITALS: BP_SYST 139
[2021-05-31 08:16] LABS: CREATININE 0.45 mg/dL (0.55-1.30); POTASSIUM 3.2 mmol/L (3.5-5.1)
[2021-05-31] MEDS: CALCIUM CARBONATE/VITAMIN D3 1 TAB TABLET PO SCH ×2 (08:37→21:39)
[2021-05-31] MEDS: SODIUM BICARBONATE 650 MG TABLET PO SCH ×2 (08:37→21:37)
[2021-05-31] MEDS: ASCORBIC ACID 500 MG TABLET PO SCH (08:38)
[2021-05-31] MEDS: DOCUSATE SODIUM 100 MG CAPSULE PO SCH ×2 (08:38→21:37)
[2021-05-31] MEDS: METOPROLOL TARTRATE 50 MG TABLET PO SCH ×2 (08:38→21:38)
[2021-05-31] MEDS: CYCLOBENZAPRINE HCL 10 MG TABLET (FLEXERIL) PO SCH ×3 (08:39→21:39)
[2021-05-31] MEDS: amLODIPine BESYLATE 5 MG TABLET PO SCH (08:39)
[2021-05-31] MEDS: CITALOPRAM HYDROBROMIDE 20 MG TABLET PO SCH (08:39)
[2021-05-31 08:58] LABS: HEMATOCRIT 26.5 % (36-48); HEMOGLOBIN 8.5 g/dL (12.0-16.0); MEAN CORPUSCULAR HEMOGLOBIN 29 pg (27-31); MEAN CORPUSCULAR HGB CONC 32 % (32-36); MEAN CORPUSCULAR VOLUME 89 fL (79.0-98.0); PLATELET COUNT (AUTO) 145 K/uL (130-430); RED BLOOD CELL COUNT(AUTO) 2.96 MIL/uL (4.2-6.2)
[2021-05-31 10:04] LABS: CALCIUM 6.3 mg/dL (8.4-11.0)
[2021-05-31 10:46] LABS: WHITE BLOOD COUNT (AUTO) 30.5 K/uL (4.8-10.8)
[2021-05-31 13:08] VITALS: BP_SYST 128
[2021-05-31 14:40] LABS: BAND % (MANUAL) 2 % (0-6); BASOPHILS % (MANUAL) 0 % (0-2); EOSINOPHILS % (MANUAL) 0 % (0-7); LYMPHOCYTES % (MANUAL) 3 % (20-46); MONOCYTES % (MANUAL) 4 % (0-11)
[2021-05-31] MEDS ORDERED: CALCIUM GLUCONATE 1 GM/10 ML VIAL IVP ONE (16:30)
[2021-05-31] MEDS ORDERED: K PHOS 30 MM in NS 250 ML IV ONE (16:30)
[2021-05-31] MEDS ORDERED: CALCIUM GLUCONATE 2 GM in NS 100 ML IV ONE (16:45)
[2021-05-31 17:23] VITALS: BP_SYST 138
[2021-05-31] MEDS: RIVAROXABAN 10 MG TABLET PO SCH (21:39)
[2021-06-01 00:30] VITALS: BP_SYST 124
[2021-06-01] MEDS: MEROPENEM 1 GM in NS 100 ML IV SCH ×3 (06:41→22:01)
[2021-06-01 07:48] VITALS: BP_SYST 136
[2021-06-01 08:04] LABS: BASOPHILS % (AUTO) 0.1 % (0.0-2.0); HEMATOCRIT 26.4 % (36-48); HEMOGLOBIN 8.6 g/dL (12.0-16.0); LYMPHOCYTES # (AUTO) 0.5 K/uL (1.0-5.5); LYMPHOCYTES % (AUTO) 1.4 % (20.5-51.5); MEAN CORPUSCULAR HEMOGLOBIN 29 pg (27-31); MEAN CORPUSCULAR HGB CONC 33 % (32-36); MEAN CORPUSCULAR VOLUME 88 fL (79.0-98.0); MONOCYTES # (AUTO) 2.4 K/uL (0.0-1.0); MONOCYTES % (AUTO) 6.8 % (1.7-9.3); NEUTROPHILS # (AUTO) 31.7 K/uL (1.8-7.7); PLATELET COUNT (AUTO) 165 K/uL (130-430); RED BLOOD CELL COUNT(AUTO) 2.98 MIL/uL (4.2-6.2); RED CELL DISTRIBUTION WIDTH 15.8 % (9.0-15.0)
[2021-06-01 08:45] LABS: CREATININE 0.39 mg/dL (0.55-1.30); POTASSIUM 3.3 mmol/L (3.5-5.1)
[2021-06-01] MEDS: CALCIUM CARBONATE/VITAMIN D3 1 TAB TABLET PO SCH ×3 (09:00→21:00)
[2021-06-01] MEDS: ASCORBIC ACID 500 MG TABLET PO SCH (09:00)
[2021-06-01 09:02] LABS: CALCIUM 6.8 mg/dL (8.4-11.0)
[2021-06-01 09:06] LABS: WHITE BLOOD COUNT (AUTO) 34.6 K/uL (4.8-10.8)
[2021-06-01 09:07] LABS: NEUTROPHILS % (AUTO) 91.7 % (40.0-70.0)
[2021-06-01] MEDS: SODIUM BICARBONATE 650 MG TABLET PO SCH ×2 (09:38→21:00)
[2021-06-01] MEDS: CITALOPRAM HYDROBROMIDE 20 MG TABLET PO SCH (09:38)
[2021-06-01] MEDS: METOPROLOL TARTRATE 50 MG TABLET PO SCH ×2 (09:38→21:00)
[2021-06-01] MEDS: amLODIPine BESYLATE 5 MG TABLET PO SCH (09:38)
[2021-06-01] MEDS: CYCLOBENZAPRINE HCL 10 MG TABLET (FLEXERIL) PO SCH ×3 (09:39→21:00)
[2021-06-01] MEDS: DOCUSATE SODIUM 100 MG CAPSULE PO SCH ×2 (09:39→21:00)
[2021-06-01] MEDS ORDERED: ONDANSETRON HCL 4 MG/2 ML VIAL ONE (09:39)
[2021-06-01 12:00] VITALS: BP_SYST 128
[2021-06-01 13:06] LABS: PTH RELATED PEPTIDE <2.0 pmol/L (.)
[2021-06-01] MEDS ORDERED: CALCIUM CARBONATE/VITAMIN D3 1 TAB TABLET PO ONE (13:30)
[2021-06-01] MEDS: ONDANSETRON HCL 4 MG/2 ML VIAL IVP PRN ×2 (15:47→21:57)
[2021-06-01 16:08] VITALS: BP_SYST 133
[2021-06-01 20:00] VITALS: BP_SYST 124
[2021-06-01] MEDS: RIVAROXABAN 10 MG TABLET PO SCH (21:00)
[2021-06-01] MEDS: NAPH,MB-DB/K PH,MBDB 250 MG TAB PO SCH (21:00)
[2021-06-01] MEDS: 0.45% NACL 1,000 ML IV SCH (22:01)
[2021-06-02] VITALS: BP_SYST 132
[2021-06-02] MEDS: PANTOPRAZOLE SODIUM 40 MG/VIAL (PROTONIX) IVP SCH ×2 (03:41→09:06)
[2021-06-02] MEDS: MEROPENEM 1 GM in NS 100 ML IV SCH ×3 (06:13→23:08)
[2021-06-02 08:00] VITALS: BP_SYST 137
[2021-06-02 08:07] LABS: BASOPHILS # (AUTO) 0.1 K/uL (0.0-0.2); BASOPHILS % (AUTO) 0.2 % (0.0-2.0); HEMATOCRIT 27.8 % (36-48); HEMOGLOBIN 8.8 g/dL (12.0-16.0); LYMPHOCYTES # (AUTO) 0.6 K/uL (1.0-5.5); LYMPHOCYTES % (AUTO) 1.9 % (20.5-51.5); MEAN CORPUSCULAR HEMOGLOBIN 29 pg (27-31); MEAN CORPUSCULAR HGB CONC 32 % (32-36); MEAN CORPUSCULAR VOLUME 90 fL (79.0-98.0); MONOCYTES # (AUTO) 1.8 K/uL (0.0-1.0); MONOCYTES % (AUTO) 5.4 % (1.7-9.3); NEUTROPHILS # (AUTO) 30.5 K/uL (1.8-7.7); PLATELET COUNT (AUTO) 155 K/uL (130-430); RED BLOOD CELL COUNT(AUTO) 3.08 MIL/uL (4.2-6.2); RED CELL DISTRIBUTION WIDTH 16.5 % (9.0-15.0)
[2021-06-02 08:10] LABS: CALCIUM 7.3 mg/dL (8.4-11.0); CREATININE 0.45 mg/dL (0.55-1.30); POTASSIUM 3.4 mmol/L (3.5-5.1)
[2021-06-02] MEDS: NAPH,MB-DB/K PH,MBDB 250 MG TAB PO SCH ×3 (09:07→23:07)
[2021-06-02] MEDS: CYCLOBENZAPRINE HCL 10 MG TABLET (FLEXERIL) PO SCH ×3 (09:07→23:08)
[2021-06-02] MEDS: DOCUSATE SODIUM 100 MG CAPSULE PO SCH ×2 (09:07→23:07)
[2021-06-02] MEDS: SODIUM BICARBONATE 650 MG TABLET PO SCH ×2 (09:07→23:07)
[2021-06-02] MEDS: CITALOPRAM HYDROBROMIDE 20 MG TABLET PO SCH (09:08)
[2021-06-02] MEDS: amLODIPine BESYLATE 5 MG TABLET PO SCH (09:08)
[2021-06-02] MEDS: ASCORBIC ACID 500 MG TABLET PO SCH (09:08)
[2021-06-02] MEDS: METOPROLOL TARTRATE 50 MG TABLET PO SCH ×2 (09:08→23:07)
[2021-06-02] MEDS: CALCIUM CARBONATE/VITAMIN D3 1 TAB TABLET PO SCH ×3 (09:09→23:08)
[2021-06-02 09:20] LABS: NEUTROPHILS % (AUTO) 92.5 % (40.0-70.0)
[2021-06-02 12:00] VITALS: BP_SYST 132
[2021-06-02] MEDS ORDERED: POTASSIUM CHLORIDE 20 MEQ/PKT PACKET PO ONE (14:45)
[2021-06-02 16:00] VITALS: BP_SYST 125
[2021-06-02 20:10] VITALS: BP_SYST 133
[2021-06-02] MEDS: RIVAROXABAN 10 MG TABLET PO SCH (23:11)
[2021-06-03 00:20] VITALS: BP_SYST 131
[2021-06-03] MEDS: MEROPENEM 1 GM in NS 100 ML IV SCH ×3 (06:12→22:53)
[2021-06-03 06:42] LABS: BASOPHILS # (AUTO) 0.1 K/uL (0.0-0.2); BASOPHILS % (AUTO) 0.2 % (0.0-2.0); HEMATOCRIT 27.1 % (36-48); HEMOGLOBIN 8.7 g/dL (12.0-16.0); LYMPHOCYTES # (AUTO) 0.6 K/uL (1.0-5.5); MEAN CORPUSCULAR HEMOGLOBIN 29 pg (27-31); MEAN CORPUSCULAR HGB CONC 32 % (32-36); MEAN CORPUSCULAR VOLUME 90 fL (79.0-98.0); MONOCYTES # (AUTO) 2.1 K/uL (0.0-1.0); MONOCYTES % (AUTO) 7.3 % (1.7-9.3); NEUTROPHILS # (AUTO) 25.9 K/uL (1.8-7.7); NEUTROPHILS % (AUTO) 90.5 % (40.0-70.0); PLATELET COUNT (AUTO) 159 K/uL (130-430); RED BLOOD CELL COUNT(AUTO) 3.01 MIL/uL (4.2-6.2); RED CELL DISTRIBUTION WIDTH 16.3 % (9.0-15.0); WHITE BLOOD COUNT (AUTO) 28.7 K/uL (4.8-10.8)
[2021-06-03 06:45] LABS: CREATININE 0.51 mg/dL (0.55-1.30); PHOSPHORUS 1.4 mg/dL (2.7-4.5); POTASSIUM 3.4 mmol/L (3.5-5.1)
[2021-06-03 07:50] VITALS: BP_SYST 137
[2021-06-03] MEDS: CALCIUM CARBONATE/VITAMIN D3 1 TAB TABLET PO SCH ×4 (09:00→21:00)
[2021-06-03] MEDS: DOCUSATE SODIUM 100 MG CAPSULE PO SCH ×2 (09:27→21:00)
[2021-06-03] MEDS: SODIUM BICARBONATE 650 MG TABLET PO SCH ×2 (09:27→21:00)
[2021-06-03] MEDS: CYCLOBENZAPRINE HCL 10 MG TABLET (FLEXERIL) PO SCH ×3 (09:27→22:52)
[2021-06-03] MEDS: PANTOPRAZOLE SODIUM 40 MG/VIAL (PROTONIX) IVP SCH (09:27)
[2021-06-03] MEDS: CITALOPRAM HYDROBROMIDE 20 MG TABLET PO SCH (09:28)
[2021-06-03] MEDS: NAPH,MB-DB/K PH,MBDB 250 MG TAB PO SCH ×3 (09:28→22:55)
[2021-06-03] MEDS: ASCORBIC ACID 500 MG TABLET PO SCH (09:28)
[2021-06-03] MEDS: METOPROLOL TARTRATE 50 MG TABLET PO SCH ×2 (09:29→22:56)
[2021-06-03] MEDS: amLODIPine BESYLATE 5 MG TABLET PO SCH (09:30)
[2021-06-03] MEDS: ACETAMINOPHEN 500 MG TABLET PO PRN (09:33)
[2021-06-03 11:25] VITALS: BP_SYST 131
[2021-06-03 16:00] VITALS: BP_SYST 136
[2021-06-03 21:15] VITALS: BP_SYST 148
[2021-06-03] MEDS: RIVAROXABAN 10 MG TABLET PO SCH (22:59)
[2021-06-04 00:26] VITALS: BP_SYST 140
[2021-06-04] MEDS: MEROPENEM 1 GM in NS 100 ML IV SCH ×2 (05:32→14:56)
[2021-06-04 06:57] LABS: BASOPHILS % (AUTO) 0.1 % (0.0-2.0); HEMATOCRIT 26.5 % (36-48); HEMOGLOBIN 8.7 g/dL (12.0-16.0); LYMPHOCYTES # (AUTO) 0.7 K/uL (1.0-5.5); LYMPHOCYTES % (AUTO) 2.5 % (20.5-51.5); MEAN CORPUSCULAR HEMOGLOBIN 30 pg (27-31); MEAN CORPUSCULAR HGB CONC 33 % (32-36); MEAN CORPUSCULAR VOLUME 90 fL (79.0-98.0); MONOCYTES # (AUTO) 1.9 K/uL (0.0-1.0); MONOCYTES % (AUTO) 6.6 % (1.7-9.3); NEUTROPHILS # (AUTO) 25.8 K/uL (1.8-7.7); PLATELET COUNT (AUTO) 152 K/uL (130-430); RED BLOOD CELL COUNT(AUTO) 2.93 MIL/uL (4.2-6.2); RED CELL DISTRIBUTION WIDTH 16.1 % (9.0-15.0); WHITE BLOOD COUNT (AUTO) 28.4 K/uL (4.8-10.8)
[2021-06-04] MEDS: CYCLOBENZAPRINE HCL 10 MG TABLET (FLEXERIL) PO SCH ×3 (07:51→21:45)
[2021-06-04] MEDS: CITALOPRAM HYDROBROMIDE 20 MG TABLET PO SCH (07:51)
[2021-06-04] MEDS: METOPROLOL TARTRATE 50 MG TABLET PO SCH ×2 (07:51→21:49)
[2021-06-04] MEDS: SODIUM BICARBONATE 650 MG TABLET PO SCH ×2 (07:51→21:43)
[2021-06-04] MEDS: DOCUSATE SODIUM 100 MG CAPSULE PO SCH ×2 (07:52→21:45)
[2021-06-04] MEDS: NAPH,MB-DB/K PH,MBDB 250 MG TAB PO SCH ×3 (07:52→21:45)
[2021-06-04] MEDS: CALCIUM CARBONATE/VITAMIN D3 1 TAB TABLET PO SCH ×3 (07:52→21:43)
[2021-06-04] MEDS: amLODIPine BESYLATE 5 MG TABLET PO SCH (07:52)
[2021-06-04] MEDS: ASCORBIC ACID 500 MG TABLET PO SCH (07:52)
[2021-06-04] MEDS: PANTOPRAZOLE SODIUM 40 MG/VIAL (PROTONIX) IVP SCH (07:53)
[2021-06-04 09:22] LABS: CALCIUM 7.4 mg/dL (8.4-11.0); CREATININE 0.47 mg/dL (0.55-1.30); PHOSPHORUS 1.1 mg/dL (2.7-4.5); POTASSIUM 3.5 mmol/L (3.5-5.1)
[2021-06-04 09:23] VITALS: BP_SYST 146
[2021-06-04 09:25] VITALS: BP_SYST 146
[2021-06-04 09:35] LABS: NEUTROPHILS % (AUTO) 90.8 % (40.0-70.0)
[2021-06-04 12:56] VITALS: BP_SYST 143
[2021-06-04] MEDS: D5W 1,000 ML IV SCH (14:58)
[2021-06-04] MEDS ORDERED: K PHOS 30 MM in NS 250 ML IV ONE (15:00)
[2021-06-04] MEDS: ACETAMINOPHEN 500 MG TABLET PO PRN (15:52)
[2021-06-04 16:00] VITALS: BP_SYST 144
[2021-06-04] MEDS: RIVAROXABAN 10 MG TABLET PO SCH (21:45)
[2021-06-04 21:55] VITALS: BP_SYST 131
[2021-06-05 00:52] VITALS: BP_SYST 123
[2021-06-05] MEDS: MEROPENEM 1 GM in NS 100 ML IV SCH ×4 (01:50→21:19)
[2021-06-05] MEDS: D5W 1,000 ML IV SCH ×2 (05:52→18:21)
[2021-06-05] MEDS: INSULIN REGULAR, HUMAN 100 UNITS/ML, 10 ML VIAL (humuLIN R) SUBCUT PRN ×2 (06:37→11:59)
[2021-06-05 06:55] LABS: BASOPHILS # (AUTO) 0.1 K/uL (0.0-0.2); BASOPHILS % (AUTO) 0.2 % (0.0-2.0); HEMATOCRIT 28.5 % (36-48); HEMOGLOBIN 9.3 g/dL (12.0-16.0); LYMPHOCYTES # (AUTO) 0.6 K/uL (1.0-5.5); LYMPHOCYTES % (AUTO) 2.2 % (20.5-51.5); MEAN CORPUSCULAR HEMOGLOBIN 29 pg (27-31); MEAN CORPUSCULAR HGB CONC 33 % (32-36); MEAN CORPUSCULAR VOLUME 88 fL (79.0-98.0); MONOCYTES # (AUTO) 1.7 K/uL (0.0-1.0); MONOCYTES % (AUTO) 6.6 % (1.7-9.3); NEUTROPHILS # (AUTO) 23.5 K/uL (1.8-7.7); PLATELET COUNT (AUTO) 134 K/uL (130-430); RED BLOOD CELL COUNT(AUTO) 3.23 MIL/uL (4.2-6.2); RED CELL DISTRIBUTION WIDTH 16.6 % (9.0-15.0); WHITE BLOOD COUNT (AUTO) 25.9 K/uL (4.8-10.8)
[2021-06-05 08:00] LABS: CREATININE 0.56 mg/dL (0.55-1.30); PHOSPHORUS 2.1 mg/dL (2.7-4.5); POTASSIUM 3.8 mmol/L (3.5-5.1)
[2021-06-05] MEDS: PANTOPRAZOLE SODIUM 40 MG/VIAL (PROTONIX) IVP SCH (08:02)
[2021-06-05] MEDS: ASCORBIC ACID 500 MG TABLET PO SCH (08:03)
[2021-06-05] MEDS: SODIUM BICARBONATE 650 MG TABLET PO SCH ×2 (08:03→20:34)
[2021-06-05] MEDS: CYCLOBENZAPRINE HCL 10 MG TABLET (FLEXERIL) PO SCH ×3 (08:03→20:33)
[2021-06-05] MEDS: amLODIPine BESYLATE 5 MG TABLET PO SCH (08:03)
[2021-06-05] MEDS: DOCUSATE SODIUM 100 MG CAPSULE PO SCH ×2 (08:03→21:00)
[2021-06-05] MEDS: CITALOPRAM HYDROBROMIDE 20 MG TABLET PO SCH (08:03)
[2021-06-05] MEDS: METOPROLOL TARTRATE 50 MG TABLET PO SCH ×2 (08:04→20:33)
[2021-06-05] MEDS: CALCIUM CARBONATE/VITAMIN D3 1 TAB TABLET PO SCH ×3 (08:05→21:00)
[2021-06-05] MEDS: NAPH,MB-DB/K PH,MBDB 250 MG TAB PO SCH ×3 (08:05→21:00)
[2021-06-05 09:25] LABS: CALCIUM 7.2 mg/dL (8.4-11.0)
[2021-06-05 09:30] VITALS: BP_SYST 132
[2021-06-05 09:31] VITALS: BP_SYST 132
[2021-06-05] MEDS: ACETAMINOPHEN 500 MG TABLET PO PRN (12:00)
[2021-06-05 12:03] VITALS: BP_SYST 128
[2021-06-05 16:47] VITALS: BP_SYST 130
[2021-06-05 20:00] VITALS: BP_SYST 115
[2021-06-05] MEDS ORDERED: K PHOS 30 MM in NS 250 ML IV ONE (20:00)
[2021-06-05] MEDS: RIVAROXABAN 10 MG TABLET PO SCH (20:32)
[2021-06-06 00:38] VITALS: BP_SYST 104
[2021-06-06 07:34] LABS: BASOPHILS # (AUTO) 0.1 K/uL (0.0-0.2); BASOPHILS % (AUTO) 0.2 % (0.0-2.0); EOSINOPHILS % (AUTO) 0.1 % (0.0-4.0); HEMATOCRIT 29.9 % (36-48); HEMOGLOBIN 9.6 g/dL (12.0-16.0); LYMPHOCYTES # (AUTO) 0.7 K/uL (1.0-5.5); LYMPHOCYTES % (AUTO) 2.7 % (20.5-51.5); MEAN CORPUSCULAR HEMOGLOBIN 28 pg (27-31); MEAN CORPUSCULAR HGB CONC 32 % (32-36); MEAN CORPUSCULAR VOLUME 88 fL (79.0-98.0); MONOCYTES # (AUTO) 1.4 K/uL (0.0-1.0); MONOCYTES % (AUTO) 5.4 % (1.7-9.3); NEUTROPHILS # (AUTO) 24.4 K/uL (1.8-7.7); NEUTROPHILS % (AUTO) 91.6 % (40.0-70.0); PLATELET COUNT (AUTO) 120 K/uL (130-430); RED BLOOD CELL COUNT(AUTO) 3.39 MIL/uL (4.2-6.2); RED CELL DISTRIBUTION WIDTH 17.2 % (9.0-15.0); WHITE BLOOD COUNT (AUTO) 26.6 K/uL (4.8-10.8)
[2021-06-06] MEDS: MEROPENEM 1 GM in NS 100 ML IV SCH ×3 (07:35→21:08)
[2021-06-06] MEDS: D5W 1,000 ML IV SCH ×2 (07:36→14:21)
[2021-06-06 08:00] VITALS: BP_SYST 113
[2021-06-06 08:05] LABS: CREATININE 0.77 mg/dL (0.55-1.30); PHOSPHORUS 3.4 mg/dL (2.7-4.5); POTASSIUM 4.4 mmol/L (3.5-5.1)
[2021-06-06 09:05] LABS: CALCIUM 6.8 mg/dL (8.4-11.0)
[2021-06-06] MEDS: DOCUSATE SODIUM 100 MG CAPSULE PO SCH ×2 (09:36→21:08)
[2021-06-06] MEDS: ASCORBIC ACID 500 MG TABLET PO SCH (09:36)
[2021-06-06] MEDS: CYCLOBENZAPRINE HCL 10 MG TABLET (FLEXERIL) PO SCH ×3 (09:36→21:06)
[2021-06-06] MEDS: SODIUM BICARBONATE 650 MG TABLET PO SCH ×2 (09:36→21:05)
[2021-06-06] MEDS: PANTOPRAZOLE SODIUM 40 MG/VIAL (PROTONIX) IVP SCH (09:36)
[2021-06-06] MEDS: CITALOPRAM HYDROBROMIDE 20 MG TABLET PO SCH (09:37)
[2021-06-06] MEDS: NAPH,MB-DB/K PH,MBDB 250 MG TAB PO SCH ×4 (09:37→21:06)
[2021-06-06] MEDS: amLODIPine BESYLATE 5 MG TABLET PO SCH (09:38)
[2021-06-06] MEDS: METOPROLOL TARTRATE 50 MG TABLET PO SCH ×2 (09:39→21:07)
[2021-06-06] MEDS: ONDANSETRON HCL 4 MG/2 ML VIAL IVP PRN ×2 (09:46→15:56)
[2021-06-06] MEDS: CALCIUM CARBONATE/VITAMIN D3 1 TAB TABLET PO ONE ×2 (09:59→10:26)
[2021-06-06] MEDS ORDERED: CALCIUM GLUCONATE 2 GM in NS 100 ML IV ONE (10:15)
[2021-06-06] MEDS: CALCIUM CARBONATE/VITAMIN D3 1 TAB TABLET PO SCH ×3 (10:16→18:03)
[2021-06-06 13:25] VITALS: BP_SYST 117
[2021-06-06 17:59] VITALS: BP_SYST 125
[2021-06-06 20:00] VITALS: BP_SYST 102
[2021-06-06] MEDS: RIVAROXABAN 10 MG TABLET PO SCH (21:06)
[2021-06-07] VITALS: BP_SYST 110
[2021-06-07] MEDS: D5W 1,000 ML IV SCH (03:19)
[2021-06-07] MEDS: MEROPENEM 1 GM in NS 100 ML IV SCH ×2 (05:27→14:00)
[2021-06-07] MEDS: CALCIUM CARBONATE/VITAMIN D3 1 TAB TABLET PO SCH ×2 (07:00→10:42)
[2021-06-07 07:23] LABS: BASOPHILS # (AUTO) 0.1 K/uL (0.0-0.2); BASOPHILS % (AUTO) 0.2 % (0.0-2.0); EOSINOPHILS % (AUTO) 0.1 % (0.0-4.0); HEMATOCRIT 26.3 % (36-48); HEMOGLOBIN 8.5 g/dL (12.0-16.0); LYMPHOCYTES # (AUTO) 0.6 K/uL (1.0-5.5); LYMPHOCYTES % (AUTO) 2.4 % (20.5-51.5); MEAN CORPUSCULAR HEMOGLOBIN 29 pg (27-31); MEAN CORPUSCULAR HGB CONC 32 % (32-36); MEAN CORPUSCULAR VOLUME 89 fL (79.0-98.0); MONOCYTES # (AUTO) 1.3 K/uL (0.0-1.0); MONOCYTES % (AUTO) 5.1 % (1.7-9.3); NEUTROPHILS % (AUTO) 92.2 % (40.0-70.0); PLATELET COUNT (AUTO) 99 K/uL (130-430); RED BLOOD CELL COUNT(AUTO) 2.97 MIL/uL (4.2-6.2); RED CELL DISTRIBUTION WIDTH 17.4 % (9.0-15.0); WHITE BLOOD COUNT (AUTO) 24.9 K/uL (4.8-10.8)
[2021-06-07 08:29] LABS: CREATININE 0.69 mg/dL (0.55-1.30); POTASSIUM 3.6 mmol/L (3.5-5.1)
[2021-06-07] MEDS: ASCORBIC ACID 500 MG TABLET PO SCH (09:00)
[2021-06-07] MEDS: NAPH,MB-DB/K PH,MBDB 250 MG TAB PO SCH (09:00)
[2021-06-07] MEDS: CYCLOBENZAPRINE HCL 10 MG TABLET (FLEXERIL) PO SCH (09:40)
[2021-06-07] MEDS: PANTOPRAZOLE SODIUM 40 MG/VIAL (PROTONIX) IVP SCH (09:40)
[2021-06-07] MEDS: SODIUM BICARBONATE 650 MG TABLET PO SCH (09:40)
[2021-06-07] MEDS: CITALOPRAM HYDROBROMIDE 20 MG TABLET PO SCH (09:40)
[2021-06-07] MEDS: METOPROLOL TARTRATE 50 MG TABLET PO SCH (09:41)
[2021-06-07] MEDS: amLODIPine BESYLATE 5 MG TABLET PO SCH (09:41)
[2021-06-07] MEDS: DOCUSATE SODIUM 100 MG CAPSULE PO SCH (09:41)
[2021-06-07 12:00] VITALS: BP_SYST 123
[2021-06-07 13:56] VITALS: BP_SYST 123
[2021-06-07] MEDS ORDERED: FLUCONAZOLE 100 MG TABLET (DIFLUCAN) PO ONE (14:00)
== END 2021-06-07 15:15 | DRG 871 ==
LOC: SED 09:12 → STU 12:29
PROVIDERS: ADMIT Internal Medicine; ATTEND Internal Medicine
DX: A41.9 Sepsis, unspecified organism (principal); E43 Unspecified severe protein-calorie malnutrition; G93.41 Metabolic encephalopathy; J18.9 Pneumonia, unspecified organism; N17.9 Acute kidney failure, unspecified; C79.51 Secondary malignant neoplasm of bone; I82.412 Acute embolism and thrombosis of left femoral vein; N13.6 Pyonephrosis; C78.02 Secondary malignant neoplasm of left lung; C78.01 Secondary malignant neoplasm of right lung; C53.9 Malignant neoplasm of cervix uteri, unspecified; E83.52 Hypercalcemia; N18.9 Chronic kidney disease, unspecified; K82.8 Other specified diseases of gallbladder; K80.20 Calculus of gallbladder without cholecystitis without obstruction; F32.A Depression, unspecified; J84.10 Pulmonary fibrosis, unspecified; E86.0 Dehydration; I12.9 Hypertensive chronic kidney disease with stage 1 through stage 4 chronic kidney disease, or unspecified chronic kidney disease; R65.20 Severe sepsis without septic shock; E83.39 Other disorders of phosphorus metabolism; K56.41 Fecal impaction; R91.8 Other nonspecific abnormal finding of lung field; E87.6 Hypokalemia; Z20.822 Contact with and (suspected) exposure to COVID-19; D63.8 Anemia in other chronic diseases classified elsewhere; E87.5 Hyperkalemia; E11.22 Type 2 diabetes mellitus with diabetic chronic kidney disease; Z85.42 Personal history of malignant neoplasm of other parts of uterus; Z85.3 Personal history of malignant neoplasm of breast; Z90.13 Acquired absence of bilateral breasts and nipples; Z92.21 Personal history of antineoplastic chemotherapy; Z78.1 Physical restraint status; Z68.29 Body mass index [BMI] 29.0-29.9, adult; Z79.899 Other long term (current) drug therapy
CPT/HCPCS: 36415; 70450-TC; 71045; 76376; 76700-TC; 78708; 80048; 80053; 80061; 81000; 81003; 82040; 82043; 82272; 82306; 82570; 82607; 82728; 82746; 82962; 83519; 83540; 83550; 83605; 83690; 83735; 83970; 84100; 84302; 84443; 84484; 85007; 85025; 85027; 85384; 85610-TC; 85730-TC; 87040-TC; 87081; 87086; 93005; 93971; 96361; 96365; 96367; 96375; 97110-GP; 97163-GP; 97530-GP; 99291; A9562; C9113; G0378; J0610; J0630; J1100; J1815; J2020; J2060; J2185; J2405; J2543; J3480; J7050